=== PATIENT | male | born 1985 | race African-American/Black ===

== ENCOUNTER 2018-01-05 11:04 | Emergency (ER) | payer MEDICAID ==
[~2018-01-05] VITALS: Ht 165.1 cm; Wt 76.0 kg
[2018-01-05 11:07] VITALS: BP 122/88
== END 2018-01-05 14:13 | disposition home or self-care (01) ==
LOC: ER 11:04
DX: R46.89 Other symptoms and signs involving appearance and behavior (principal); F20.9 Schizophrenia, unspecified
CPT/HCPCS: 99283